=== PATIENT | male | born 1960 | race Caucasian/White ===

== ENCOUNTER 2019-06-08 07:14 | Day surgery (SDC) ==
--- NOTE | 2019-06-01 08:41 | EKG Report ---
Test Performed on : 06/01/2019 08:17:47 AM Test Reason : pat Blood Pressure : / mmHG Vent. Rate : 062 BPM Atrial Rate : 062 BPM P-R Int : 122 ms QRS Dur : 098 ms QT Int : 360 ms P-R-T Axes : 025 006 075 degrees QTc Int : 365 ms Normal sinus rhythm. with sinus arrhythmia. Nonspecific T wave abnormality Abnormal ECG When compared with ECG of 10-JUL-2015 10:38, QRS axis shifted right Nonspecific T wave abnormality, worse in Anterolateral leads Confirmed by Cornelius Jean MD ([id number]) on 06/01/2019 9:14:50 AM
[2019-06-01 08:53] LABS: HEMATOCRIT 43.6 % (42.0-52.0); HEMOGLOBIN 15.1 g/dL (14.0-18.0); MCH 30.4 PG (27-31); MCHC 34.6 g/dL (33-37); MCV 87.9 FL (81-99); MPV 10.2 FL (7.4-10.4); RBC 4.96 XMIL (4.7-6.1); RDW 12.5 % (11.5-14.5); WBC 7.01 X1000 (4.8-10.8)
[2019-06-01 09:00] LABS: INR 0.94; PROTIME 13.3 Seconds (11.0-16.0)
[2019-06-01 09:01] LABS: PTT 25.3 Seconds (22.3-41.8)
[2019-06-01 09:13] LABS: AGAP 11; BUN 15 mg/dL (8-22); CALCIUM 9.1 mg/dL (8.8-10.2); CHLORIDE 105 mmol/L (98-107); COSMO 285; CREATININE 0.9 mg/dL (0.7-1.2); ESTIMATED GFR > 60; GLUCOSE 182 mg/dL (70-104); POTASSIUM 4.6 mmol/L (3.5-5.1); SODIUM 140 mmol/L (136-145); TCO2 24 mmol/L (25-35)
--- NOTE | 2019-06-07 19:33 | HISTORY AND PHYSICAL ---
SURGICAL HISTORY AND PHYSICAL: HISTORY OF PRESENT ILLNESS: This is a 59-year-old male who developed hematuria. He also has had left flank pain. He underwent workup of his gross hematuria with CT scan on 04/25/2019 which revealed left hydronephrosis with ureteropelvic junction obstruction as well as a small left renal stone. He underwent cystoscopy on 05/02/2019 which was unremarkable. He was counseled on observation versus repair of the ureteropelvic junction obstruction and wants to proceed with the latter. PAST MEDICAL HISTORY: Hypertension, diabetes mellitus, coronary artery disease, hyperlipidemia, BPH, GERD, depression, and undescended right testicle. PAST SURGICAL HISTORY: Coronary bypass grafting, coronary ablation, and neck surgery. ALLERGIES: No known drug allergies. MEDICATIONS: Lipitor, losartan, metformin, metoprolol, and Zoloft. SOCIAL HISTORY: Denies tobacco, alcohol, or illicit drug use. FAMILY HISTORY: Negative for malignancies. PHYSICAL EXAMINATION: GENERAL: No acute distress. HEENT: Normocephalic, atraumatic. ABDOMEN: Nontender, nondistended. BACK: No CVA tenderness. GENITOURINARY: Normal external male genitalia with solitary left testis. ASSESSMENT AND PLAN: A 59-year-old male with gross hematuria, left ureteropelvic junction obstruction with hydronephrosis, and left flank pain. We discussed observation versus serial ureteral stents versus endopyelotomy versus robotic-assisted laparoscopic pyeloplasty. Pros and cons of each were explained. He feels strongly about robotic pyeloplasty. We discussed risks of robotic pyeloplasty and ureteral stent placement, including, but not limited to, bleeding, infection, injury to the kidney or injury to adjacent structures, stricture recurrence, and need for additional interventions as well as failure to correct flank pain, were discussed. He voiced understanding and wants to proceed. PLAN: Left robotic-assisted laparoscopic pyeloplasty, ureteral stent placement. cc: Mayco Odonnell MD
[2019-06-08] MEDS ORDERED: KEFZOL 1 GM/D5W 2 GM/100 ML IVPB ONE (07:59)
[2019-06-08] MEDS ORDERED: LR 1,000 ML ONE ×2 (07:59→09:16)
[2019-06-08] MEDS ORDERED: XYLOCAINE-MPF 2% ONE (08:09)
[2019-06-08] MEDS ORDERED: DIPRIVAN 1% ONE (08:09)
[2019-06-08] MEDS ORDERED: ROBINUL ONE (08:09)
[2019-06-08] MEDS ORDERED: DECADRON ONE (08:09)
[2019-06-08] MEDS ORDERED: ZOFRAN ONE (08:09)
[2019-06-08] MEDS ORDERED: VERSED ONE (08:10)
[2019-06-08] MEDS ORDERED: SENSORCAINE 0.25%/EPI 1:200,000 ONE (09:16)
[2019-06-08] MEDS ORDERED: BRIDION ONE (09:32)
[2019-06-08] MEDS ORDERED: OFIRMEV 1000 MG/ISOTONIC SOLN 1,000 MG/100 ML BOTTLE ONE (10:36)
[2019-06-08] MEDS ORDERED: EPHEDRINE ONE (10:52)
[2019-06-08] MEDS ORDERED: SODIUM CHLORIDE 0.9% 10 ML ONE (10:52)
[2019-06-08] MEDS ORDERED: NS 1,000 ML ONE (11:35)
[2019-06-08] MEDS ORDERED: TORADOL ONE (11:41)
[2019-06-08] MEDS: DILAUDID ONE ×2 (11:46→11:54)
[2019-06-08] MEDS ORDERED: NORCO-10 ONE (12:07)
[2019-06-08] MEDS ORDERED: MORPHINE IV PRN (13:15)
[2019-06-08] MEDS ORDERED: PHENERGAN IV PRN (13:15)
[2019-06-08] MEDS ORDERED: BENADRYL LIQUID PO PRN (13:15)
[2019-06-08] MEDS ORDERED: DITROPAN PO PRN (13:15)
[2019-06-08] MEDS ORDERED: PHENERGAN PO PRN (13:15)
[2019-06-08] MEDS ORDERED: ZOFRAN IV PRN (13:15)
[2019-06-08] MEDS ORDERED: SODIUM CHLORIDE 0.9% INJ PRN (13:15)
[2019-06-08] MEDS ORDERED: NORCO-7.5 PO PRN (13:15)
[2019-06-08] MEDS ORDERED: LABETALOL IV PRN (13:15)
[2019-06-08] MEDS ORDERED: BENADRYL IV PRN (13:15)
[2019-06-08] MEDS ORDERED: PHENERGAN PR PRN (13:15)
[2019-06-08] MEDS ORDERED: B & O 15A SUPP PR PRN (13:15)
[2019-06-08] MEDS ORDERED: NORCO-5 PO PRN (13:15)
[2019-06-08] MEDS: DILAUDID IV PRN ×2 (14:37→21:44)
[2019-06-08] MEDS: NS 1,000 ML IV SCH ×2 (14:38→21:44)
[2019-06-08] MEDS: TORADOL IV SCH (18:56)
[2019-06-08] MEDS: KEFZOL 2 GM/D5W 2 GM/50 ML IVPB IV SCH (18:56)
[2019-06-08] MEDS: NORCO-10 PO PRN (19:00)
[2019-06-08] MEDS ORDERED: TYLENOL PO PRN (19:00)
[2019-06-08] MEDS ORDERED: OFIRMEV 1000 MG/ISOTONIC SOLN 1,000 MG/100 ML BOTTLE IV PRN (19:00)
[2019-06-08] MEDS: COLACE PO SCH (21:44)
[2019-06-09] MEDS: KEFZOL 2 GM/D5W 2 GM/50 ML IVPB IV SCH ×2 (01:06→08:48)
[2019-06-09] MEDS: TORADOL IV SCH ×2 (01:06→05:34)
[2019-06-09] MEDS: DILAUDID IV PRN (01:06)
[2019-06-09 05:32] LABS: BODY FLUID SOURCE JP DRAIN FLUID; CREATININE BODY FLUID 1.2 mg/dL
[2019-06-09 06:42] LABS: HEMATOCRIT 40.4 % (42.0-52.0); HEMOGLOBIN 13.8 g/dL (14.0-18.0); MCH 30.9 PG (27-31); MCHC 34.2 g/dL (33-37); MCV 90.4 FL (81-99); MPV 11.1 FL (7.4-10.4); RBC 4.47 XMIL (4.7-6.1); RDW 12.6 % (11.5-14.5); WBC 11.32 X1000 (4.8-10.8)
[2019-06-09] MEDS: NORCO-10 PO PRN ×2 (06:50→10:45)
[2019-06-09 06:59] LABS: AGAP 13; BUN 15 mg/dL (8-22); CALCIUM 8.4 mg/dL (8.8-10.2); CHLORIDE 106 mmol/L (98-107); COSMO 287; ESTIMATED GFR > 60; GLUCOSE 115 mg/dL (70-104); POTASSIUM 3.8 mmol/L (3.5-5.1); SODIUM 143 mmol/L (136-145); TCO2 24 mmol/L (25-35)
[2019-06-09] MEDS: COLACE PO SCH (08:48)
[2019-06-09] MEDS: NS 1,000 ML IV SCH (10:53)
[2019-06-09 11:46] VITALS: BP 145/75
--- NOTE | 2019-07-12 03:55 | OPERATIVE NOTE ---
PROCEDURE DATE : 06/08/2019 SURGEON: Mayco Odonnell MD. PREOPERATIVE DIAGNOSIS: 1. Left ureteropelvic junction obstruction. 2. Left hydronephrosis. 3. Left flank pain. 4. Gross hematuria. POSTOPERATIVE DIAGNOSIS: 1. Left ureteropelvic junction obstruction. 2. Left hydronephrosis. 3. Left flank pain. 4. Gross hematuria. PROCEDURE: 1. Left robotic-assisted laparoscopy pyeloplasty. 2. Placement of 6-Yemeni 24 cm ureteral stent. PUDDLER PILE DRIVING: Mian Corley MD. Please note that Dr. Corley present and participated in the entire case with exception to skin closure. INDICATIONS: A 59-year-old male, who developed gross hematuria and left flank pain. He was evaluated with CT scan and cystoscopy. Imaging studies revealed significant left hydronephrosis with tapering of the ureteropelvic junction. He desires definitive intervention. FINDINGS: Fairly significant narrowing at the ureteropelvic junction, watertight tension free ureteropelvic anastomosis at the conclusion of the case. DESCRIPTION OF PROCEDURE: After obtaining informed consent, the patient was brought to the operating room. Perioperative antibiotics and general endotracheal anesthesia were administered. He was placed in modified flank position with left side up. His upper and lower extremities were appropriately padded. A 16-Yemeni Aldana catheter was introduced and the bladder was drained. He was prepped and draped in sterile fashion. We began making a small stab incision in his umbilicus and introduced a Veress needle connected to saline-filled syringe. This was followed by confirmed positive drop test and aspiration of fluid in the syringe without evidence of GI contents or blood. We then insufflated his pneumoperitoneal pressure to 15 mmHg. Trocar sites were made in the standard pyeloplasty fashion, 10 mL of 0.5% Marcaine were used for our local anesthetic. Bovie electrocautery was used to incise the skin. A 12-mm camera trocar was then introduced followed by insertion of the robotic camera itself. Inspection of the peritoneal cavity revealed no evidence of adhesions. I was able to place the rest of the trocars under direct vision. We then placed them in more exaggerated flank position and the robot was docked. I began by incising the white line of Toldt and mobilizing his descending colon. This exposed Gerota's fascia. I identified the lower pole of the kidney and incised the Gerota's fascia until the kidney itself was seen. I then identified psoas muscle and eventually the ureters as well as the gonadal vein. We dissected proximally around the ureter making sure to preserve periureteral blood supply. Eventual dissection took me to the ureteropelvic junction. He had very sizable pelvis and also tapering of the ureteropelvic junction with narrowing consistent with UPJ obstruction. I then dissected around the renal pelvis giving us approximately 2 cm margin. Following that, renal pelvis was incised and the fluid was evacuated. We then excised the scarred ureteropelvic junction giving us fresh healthy edges of the ureter. The ureter was then spatulated with Fernandez scissors. I then used interrupted 4-0 Vicryl sutures to close the posterior side of the anastomosis reconnecting the renal pelvis to the ureter. After placement of approximately 5 sutures, we introduced Sensor wire into the ureter followed by introduction of 6-Yemeni 24 cm ureteral stent. The proximal coil of the stent was directly placed into the renal pelvis. I then placed 3 more interrupted sutures given us a total count of eight. Upon examination and tugging on the renal pelvis, there was no evidence of tension and the anastomosis appeared fairly watertight. We decreased pneumoperitoneal pressure to 3 mmHg. There was no evidence of bleeding. There was no evidence of injury in operative field. A Michael drain was introduced to the fourth arm and secured to skin with 2 nylon suture. We then undocked the robot and irrigated his wounds. A 0 Vicryl suture was used in a [id number] fashion to close the camera trocars as well as assistant buyer trocar fashion. The wounds were irrigated again and 4-0 Monocryl was used for subcuticular closure. This was then followed by Covidien adhesive agent to reapproximate the skin edges. Michael drain was placed to bulb suction. Aldana catheter was removed. He was extubated and taken to the PACU for further recovery. ESTIMATED BLOOD LOSS: 5 mL. COMPLICATIONS: None. DRAINS: A 6-Yemeni 24 cm ureteral stent. SPECIMENS: Left ureteropelvic junction for pathology. DISPOSITION: To PACU and subsequently to the floor for observation with Michael drain to bulb drainage. cc: Mayco Odonnell MD
== END 2019-06-09 11:53 | disposition home or self-care (01) ==
LOC: 4N 07:14 → OPS 07:14
PROVIDERS: ATTEND Urology